=== PATIENT | male | born 1955 | race Caucasian/White ===

== ENCOUNTER → 2024-02-08 07:26 | Outpatient (REF) | payer MEDICARE, OTHER, SELFPAY | LOC: RAD 07:26 | PROVIDERS: ATTENDING PHYSICIAN Family Medicine | DX: Z87.891 Personal history of nicotine dependence (principal); R22.2 Localized swelling, mass and lump, trunk | CPT/HCPCS: 71271; 76604; 76770 ==

== ENCOUNTER → 2024-02-11 07:26 | Outpatient (REF) | payer MEDICARE, OTHER, SELFPAY | LOC: RAD 07:26 | PROVIDERS: ATTENDING PHYSICIAN Family Medicine | DX: R60.9 Edema, unspecified (principal); R20.0 Anesthesia of skin; G56.01 Carpal tunnel syndrome, right upper limb | CPT/HCPCS: 93970; 95886; 95909 ==

== ENCOUNTER 2024-04-10 07:44 | Emergency (ER) | payer MEDICARE, OTHER, SELFPAY ==
[2024-04-10 07:46] VITALS: BP 163/97
--- NOTE | 2024-04-10 07:53 | ED.GENMED ---
History of Present Illness
General
Chief Complaint: Chest Pain
Time Seen by Provider: 04/10/24 07:53
History of Present Illness
History of Present Illness:
TIME OF INITIAL ENCOUNTER: 7:55 AM
HPI: Around 1:30 AM today, the patient developed chest discomfort. He was concerned because earlier today, he developed left wrist pain more so than the chest discomfort. The chest discomfort has been in small areas in various locations of the
chest. However this has been ongoing intermittently for months. When this started, he did not notify Dr. Metz about the symptoms when he was at the office. He has no shortness of breath. The chest discomfort is not exertional in nature.
EXAM:
GENERAL: Well appearing in no distress
HEENT: Moist oral mucosa
CARDIOVASCULAR: No murmurs, normal heart rate, regular rhythm, No chest wall tenderness
PULMONARY: No respiratory distress, breath sounds are clear and equal
ABDOMEN: Soft with no peritoneal signs, no tenderness
NEUROLOGIC: Excellent strength all extremities, no coordination deficits
PSYCHIATRIC: Appropriate mental status, normal insight and judgement
EXTREMITIES: Nontender, no edema, moves all extremities equally, normal active range of motion with no swelling at the left wrist
SKIN: No rash, no lesions
NUMBER AND COMPLEXITY OF PROBLEMS ADDRESSED AT THE ENCOUNTER
� Chronic conditions affecting care: Hyperlipidemia, has had left TKR
� Acute Exacerbation and/or Progression of Chronic Illness: This is an acute problem
� Differential Diagnosis includes: Musculoskeletal pain, ACS unlikely, myofasciitis
AMOUNT AND/OR COMPLEXITY OF DATA TO BE REVIEWED AND ANALYZED
� I performed an independent evaluation of and my interpretation is:
EKG: Sinus 43, no acute ST abnormality
CT:
X-rays:
Laboratory Studies: Basic blood work including troponin unremarkable
Other:
� Review of other/old records: The patient wore a Holter due to bradycardia in 2022 and had no AV block. The patient had an exercise stress test 11/23/2022 which showed no abnormalities.
� Clinical information was obtained by an independent historian: Spoke to at bedside
� Prescriptions/Medications Considered but not given:
� Further testing considered but not performed:
RISK OF COMPLICATIONS AND/OR MORBIDITY OR MORTALITY OF PATIENT MANAGEMENT
� Social determinants of health affecting care: Lives at home
� Discussion with other providers:
� Escalation of care including admission/observation vs risk of discharge considered: The patient was currently confirmed of pain that was into his left wrist that migrated proximally. Troponin negative. He has had no
exertional symptoms of chest pain. The chest pain has been intermittent for months. He is to follow-up with cardiology as an outpatient.
ANY OTHER UPDATES:
10 AM: The patient has no further symptoms.
Past History
Past History
ED Past Medical History: Hypercholesterolemia
ED Past Surgical History: Orthopedic
Social History
Tobacco: Non-smoker
Phy Exam
Physical Exam
Physical Exam:
See HPI
Scores
Heart Score for Chest Pain Patients
STEMI patient?: Not applicable
Course
Orders/Labs/Results
Orders:
Orders
04/10/24 07:45
Electrocardiogram (*1) Urgent
Reason for Study: Chest Pain
EKG- Treatment ONCE
04/10/24 08:07
Basic Metabolic Panel Urgent
Complete Blood Count/With Diff Urgent
Troponin I Urgent
04/10/24 09:09
Lorazepam [Ativan] 1 mg PO NOW STA
Abnormal Lab Results
04/10/24
08:07
RBC 4.56 L 10^6/uL
(4.70-6.10)
Glucose 117 H mg/dl
(70-99)
04/10/24 08:07
04/10/24 08:07
Vital Signs
Initial and Last Documented VS:
Initial Vital Signs
Temp Pulse Resp BP Pulse Ox
36.5 C 51 16 163/97 98
04/10/24 07:46 04/10/24 07:46 04/10/24 07:46 04/10/24 07:46 04/10/24 07:46
Last Documented Vital Signs
Temp Pulse Resp BP Pulse Ox
36.5 C 42 10 163/97 99
04/10/24 07:46 04/10/24 09:30 04/10/24 09:30 04/10/24 07:46 04/10/24 09:30
*Critical Care Note
Total Time (30-74mins, 75-104mins- exclusive of procedures): Not Applicable
ED Attending Note
-
Portions of this chart may have been created with voice recognition software.� Occasional wrong word or��sound alike� substitutions may have occurred due to the inherent limitations of voice recognition software.
Discharge Plan
Departure
Patient Disposition: Home (Routine Discharge)
Date of Disposition: 04/10/24
Time of Disposition: 10:04
Patient with high blood pressure during this ER visit?: Yes
Discharge Problem:
Chest pain
Instructions: Chest Pain CBC Follow Up
Referrals:
Trung Metz MD [Active] - Follow up in 2-3 days
Jose Villanueva, [Family Provider] -
Activity Restrictions/Additional Instructions:
I notified Dr. Reyna's office to arrange close outpatient follow-up. Somebody from their office should be calling you. EKG and cardiac blood work are normal here. Return here if worse or other concerns.
Interventions
Interventions:
*Risk Screen - Suicide Last Done: 04/10/24 07:46
*General Assessment Last Done: 04/10/24 08:04
*Neglect/Abuse Screening Last Done: 04/10/24 07:46
ED- Fall Risk Assessment Last Done: 04/10/24 08:04
*ED COVID-19 Vaccine History Last Done: 04/10/24 08:04
ED- Cardiac Assessment Last Done: 04/10/24 08:04
Discharge Date and Time
Print Language: CHINESE
[2024-04-10 08:01] VITALS: BMI 30.7
[2024-04-10 08:21] LABS: % Basophils 0.4 % (0-2); % Immature Granulocytes 0.1 % (0-0.5); % Lymphocytes 25.7 % (20.5-51.1); % Monocytes 5.9 % (1.7-9.3); % Neutrophils 66.9 % (42.2-75.2); Absolute Eosinophils 0.1 10^3/uL (0-0.7); Absolute Lymphocytes 1.8 10^3/uL (1.2-3.4); Absolute Monocytes 0.4 10^3/uL (0.1-0.6); Absolute Neutrophils 4.8 10^3/uL (1.4-6.5); Hematocrit 41.1 % (39.0-52.0); Mean Corp Hgb Conc. 34.1 g/dL (33.0-37.0); Mean Corpuscular Hgb 30.7 pg (27.0-31.0); Mean Corpuscular Volume 90.1 fL (80.0-94.0); Mean Platelet Volume 9.7 fL (7.4-10.4); Nucleated Red Blood Cells % 0 % (-); Platelet Count 205 10^3/uL (130-400); Red Blood Cell Count 4.56 10^6/uL (4.70-6.10); Red Cell Dist. Width 11.9 % (11.5-14.5); White Blood Cell Count 7.1 10^3/uL (4.8-10.8)
[2024-04-10 08:37] LABS: Blood Urea Nitrogen 16 mg/dl (9-20); Calcium 9.2 mg/dl (8.4-10.2); Carbon Dioxide 30 mmol/L (22-30); Chloride 103 mmol/L (98-107); Estimated Creatinine Clearance 86 ml/min; Glucose 117 mg/dl (70-99); Potassium 4.1 mmol/L (3.5-5.1); Sodium 140 mmol/L (135-145); eGFR > 60.00
[2024-04-10 08:48] LABS: Troponin I < 0.012 ng/ml
[2024-04-10 09:36] VITALS: BP 108/81
== END 2024-04-10 10:45 | disposition home or self-care (01) ==
LOC: EMR 07:44
PROVIDERS: EMERGENCY PHYSICIAN Emergency Medicine; FAMILY PHYSICIAN Family Medicine
DX: R07.89 Other chest pain (principal); E78.00 Pure hypercholesterolemia, unspecified
CPT/HCPCS: 99283; 80048; 84484; 85025; 93005

== ENCOUNTER → 2024-04-18 08:15 | Outpatient (REF) | payer MEDICARE, OTHER, SELFPAY | LOC: HWRCS 08:15 | PROVIDERS: ATTENDING PHYSICIAN Internal Medicine Cardiovascular Disease; FAMILY PHYSICIAN Family Medicine | DX: R07.89 Other chest pain (principal) | CPT/HCPCS: 78452; 93017; A9500 ==

== ENCOUNTER 2024-04-25 10:40 | Day surgery (SDC) | payer MEDICARE, OTHER, SELFPAY ==
[2024-04-25] VITALS (13 sets, daily range): BP systolic 100–129; BP diastolic 66–87; BMI 30.8
[2024-04-25] MEDS: NSS 293 ML IV (11:54)
--- NOTE | 2024-04-25 19:32 | ITS.CL.PN ---
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
Procedure
Procedure Note:
CARDIAC CATHETERIZATION REPORT
Date of Procedure: 04/25/2024
Referring: Dr. Stanley Wang MD
Indication: atypical chest pain, positive cardiac stress test
PROCEDURE(S)
1. left heart catheterization
2. coronary angiography
ACCESS: 6F right radial artery (closure: radial band)
CATHETERS
1. 6F JR4
2. 6F JL3.5
MODERATE SEDATION: 20 minutes of moderate sedation was utilized. An independent medical geneticist was present to assist with and help manage the patient's level of consciousness and physiologic status.
ULTRASOUND GUIDED VASCULAR ACCESS (right radial artery): Ultrasound was utilized for vascular access. The vessel was visualized under ultrasound and noted to be patent. An image of the vessel was stored permanently in the patient's medical record.
Under direct ultrasound guidance, vascular access was obtained using a modified Seldinger technique and a 6 [place] sheath was placed.
HEMODYNAMIC DATA
LVEDP 15 mmHg
CORONARY ANGIOGRAPHY
Dominance: Right
LM: Large, normal
LAD: Large vessel giving rise to several small diagonal branches. There is slow flow to the apex but no epicardial coronary artery disease.
LCx: Large vessel giving rise to a large OM1 and several small distal OM branches. There is no coronary artery disease.
RCA: Large vessel giving rise to a large caliber RPDA, moderate caliber RPL 1, and small RPL 2. There is no coronary artery disease.
CONCLUSIONS
1. Mildly elevated LVEDP.
2. Normal epicardial coronary arteries with slow flow in the LAD.
RECOMMENDATIONS
1. Primary prevention of coronary artery disease
2. Workup and management of non-cardiac chest pain vs. ANOCA.
Copy to: Dr. Stanley Wang MD (picking belt operator); Dr. Jose Villanueva DO (PCP)
Signed: Judson Caldera MD, PhD
== END 2024-04-25 18:25 | disposition home or self-care (01) ==
LOC: CATH 10:40
PROVIDERS: ATTENDING PHYSICIAN Student in an Organized Health Care Education/Training Program; FAMILY PHYSICIAN Family Medicine; OTHER PHYSICIAN Internal Medicine Cardiovascular Disease
DX: R07.89 Other chest pain (principal); E78.00 Pure hypercholesterolemia, unspecified; F17.210 Nicotine dependence, cigarettes, uncomplicated
CPT/HCPCS: 99152; 76937; 93458; C1894; Q9967